=== PATIENT | female | born 1975 | race American Indian/Alaskan Native ===

== ENCOUNTER 2017-11-28 07:06 | Outpatient (CLI) | payer BC ==
--- NOTE | 2017-11-29 08:14 | Mammography Report ---
Screening mammogram: Baseline exam. Routine views demonstrate a heterogeneously dense fibroglandular pattern with a symmetric and diffuse distribution. In the left MLO projection there are 2 asymmetries in the superior breast which are not identified in the CC projection. The finding is not otherwise remarkable. Impression: Left asymmetries. Recommendation: Compression imaging of the left breast and ultrasound if needed. BI-RADS CATEGORY: 0 = Needs additional imaging evaluation ACR BI-RADS MAMMOGRAPHIC CODES: 0 = Needs additional imaging evaluation; 1 = Negative; 2 = Benign; 3 = Probably benign; 4 = Suspicious; 5 = Malignant; 6 = Known biopsy-proven malignancy COMMENT: 1. Dense breast tissue, i.e., adenosis, fibrocystic changes, etc., may obscure an underlying neoplasm. 2. Approximately 10% of cancers are not detected with mammography. 3. A negative mammography report should not delay biopsy if a clinically suspicious mass is present.
== END 2017-11-28 07:07 | disposition home or self-care (01) ==
LOC: MAMMO 07:06
PROVIDERS: ATTEND Specialist
DX: Z12.31 Encounter for screening mammogram for malignant neoplasm of breast (principal)
CPT/HCPCS: 77067